=== PATIENT | female | born 1970 | race Caucasian/White ===

== ENCOUNTER 2024-01-08 16:00 | Day surgery (SDC) | payer OTHER ==
[2024-01-08] MEDS: FERRIC CARBOXYMALTOSE 750 MG in SODIUM CHLORIDE 250 ML IVPB ONE (16:08)
[2024-01-08 16:35] VITALS: RESP 18; TEMP 98.2
[2024-01-08 16:43] VITALS: BP 126/81; PULSE 59
== END 2024-01-08 17:23 | disposition home or self-care (01) ==
LOC: JONCCHEMO 16:00 → J7W 16:00 → JONCCHEMO 17:23
PROVIDERS: ATTEND Internal Medicine Hematology & Oncology
PROC: 3E033GC Introduction of Other Therapeutic Substance into Peripheral Vein, Percutaneous Approach (ICD-10-PCS; principal; 2024-01-08)
DX: D50.9 Iron deficiency anemia, unspecified (principal)
CPT/HCPCS: 96365; J1439

== ENCOUNTER 2024-01-15 15:57 | Day surgery (SDC) | payer OTHER ==
[2024-01-15] MEDS: FERRIC CARBOXYMALTOSE 750 MG in SODIUM CHLORIDE 250 ML IVPB ONE (16:06)
[2024-01-15 18:24] VITALS: BP 105/63; PULSE 54; RESP 16; TEMP 98
== END 2024-01-15 17:10 | disposition home or self-care (01) ==
LOC: JONCCHEMO 15:57 → J7W 15:57 → JONCCHEMO 17:10
PROVIDERS: ATTEND Internal Medicine Hematology & Oncology
PROC: 3E033GC Introduction of Other Therapeutic Substance into Peripheral Vein, Percutaneous Approach (ICD-10-PCS; principal; 2024-01-15)
DX: D50.9 Iron deficiency anemia, unspecified (principal)
CPT/HCPCS: 96365; J1439